=== PATIENT | male | born 1970 | race Hispanic/Latino ===

== ENCOUNTER 2023-07-06 08:53 | Day surgery (SDC) | payer SELFPAY ==
[2023-07-01 11:15] LABS: BASOPHILS # (AUTO) 0.04 K/uL (0.00-0.20); BASOPHILS % (AUTO) 0.5 % (0.0-5.0); EOSINOPHILS # (AUTO) 0.39 K/uL (0.00-0.70); EOSINOPHILS % (AUTO) 4.6 % (0.0-8.0); HEMATOCRIT 34.1 % (42-54); IMMATURE GRANULOCYTE ABSOLUTE 0.14 K/uL (0-1); LYMPHOCYTES # (AUTO) 1.5 K/uL (1.0-4.8); LYMPHOCYTES % (AUTO) 17.8 % (21.0-51.0); MEAN CORPUSCULAR HEMOGLOBIN 31.6 pg (27.0-33.0); MEAN CORPUSCULAR HGB CONC 32.8 g/dL (32.0-36.0); MEAN CORPUSCULAR VOLUME 96.3 fL (79-99); MONOCYTES # (AUTO) 0.7 K/uL (0.1-1.0); MONOCYTES % (AUTO) 8.1 % (3.0-13.0); NEUTROPHILS # (AUTO) 5.7 K/uL (1.8-7.7); NEUTROPHILS % (AUTO) 67.4 % (40.0-77.0); PLATELET COUNT (AUTO) 188 K/uL (130-400); RED BLOOD CELL COUNT(AUTO) 3.54 MIL/uL (4.50-6.20); RED CELL DISTRIBUTION WIDTH 14.6 % (11.0-15.5); WHITE BLOOD COUNT (AUTO) 8.5 K/uL (4.8-10.8)
[2023-07-01 11:28] LABS: INR < 0.93 (0.85-1.15); PROTHROMBIN TIME 10.3 SEC (9.6-11.6)
[2023-07-01 11:29] LABS: PARTIAL THROMBOPLASTIN TIME 28.8 SEC (26.3-35.5)
[2023-07-01 11:35] VITALS: BP 148/83; PULSE 86; RESP 18
[2023-07-01 11:42] LABS: CREATININE 6.9 mg/dL (0.5-1.5)
[2023-07-06] VITALS (18 sets, daily range): BP systolic 138–182; BP diastolic 70–86; PULSE 75–89; RESP 13–19
[~2023-07-06] VITALS: Ht 177.8 cm; Wt 100.2 kg
[~2023-07-06 08:53] MED LIST: ACET-66 PO; AMLO-258 PO; ATOR40TA71 PO; CILO50TA2 PO; CLOP75TA32 PO; FOLI0.8T22 PO; GABA-529 PO; METO100T14 PO; MULT-662 PO; SUCR500T PO
[2023-07-06 09:36] LABS: CREATININE 6.9 mg/dL (0.5-1.5); POTASSIUM 4.8 mmol/L (3.5-5.1)
[2023-07-06] MEDS ORDERED: 0.9% NACL 500ML IV.SOLN 500 ML IV ONE (09:41)
[2023-07-06] MEDS ORDERED: CEFAZOLIN SODIUM 2 GM VIAL ONE (09:41)
[2023-07-06] MEDS ORDERED: CEFAZOLIN SODIUM 1 GM VIAL ONE (09:43)
[2023-07-06] MEDS ORDERED: MIDAZOLAM HCL 1 MG/ML 2ML VIAL ONE (11:27)
[2023-07-06] MEDS ORDERED: PROPOFOL 10 MG/ML 20ML VIAL IV ONE (11:27)
[2023-07-06] MEDS ORDERED: LIDOCAINE PF 100MG/5ML (2%) SYRINGE 5ML ONE (11:27)
[2023-07-06] MEDS ORDERED: ROCURONIUM 10MG/1ML SYR 10 MG/ML ML ONE (11:27)
[2023-07-06] MEDS ORDERED: FENTANYL CITRATE PF 50 MCG/1 ML 2ML VIAL ONE (11:28)
[2023-07-06] MEDS ORDERED: BUPIVACAINE/PF 0.25% 30ML VIAL IJ ONE ×2 (11:36→11:58)
[2023-07-06] MEDS ORDERED: CEFAZOLIN SODIUM 2 GM VIAL IVPB ONE (12:04)
[2023-07-06] MEDS ORDERED: ONDANSETRON 4MG INJ ONE (12:13)
[2023-07-06] MEDS ORDERED: DEXAMETHASONE SOD PHOSPHATE 4 MG/ML 1ML VIAL ONE (12:13)
[2023-07-06] MEDS ORDERED: NEOSTIGMINE 5MG/5ML SYR IV ONE (12:23)
[2023-07-06] MEDS ORDERED: GLYCOPYRROLATE 1 MG/5 ML SYRINGE ONE (12:23)
[2023-07-06] MEDS ORDERED: TRAM50TA4 PO (12:37)
[2023-07-06] MEDS ORDERED: DOCU-116 PO (12:37)
== END 2023-07-06 14:40 | disposition home or self-care (01) ==
LOC: DAH 08:53
PROVIDERS: ATTEND Surgery
DX: I12.0 Hypertensive chronic kidney disease with stage 5 chronic kidney disease or end stage renal disease (principal); N18.6 End stage renal disease; F32.A Depression, unspecified; E78.5 Hyperlipidemia, unspecified; D50.9 Iron deficiency anemia, unspecified; Z86.73 Personal history of transient ischemic attack (TIA), and cerebral infarction without residual deficits; Z99.2 Dependence on renal dialysis; Z79.899 Other long term (current) drug therapy
CPT/HCPCS: 80048 ×2; 85025; 85610; 85730; 36415 ×2; 93005; 49324; 82948; A6260; J1100; A4663; J7040; J3010; J0690 ×3; J3490 ×3; J2710; J2001; J2250; J2704; J2405; C1750; A4930; A4215; A4223; A4222; A4221; A4600; G0168